=== PATIENT | male | born 1995 | race American Indian/Alaskan Native ===

== ENCOUNTER 2017-10-07 19:31 | Emergency (ER) | payer SELFPAY ==
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
[2017-10-08 02:29] VITALS: BP 116/60
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
== END 2017-10-08 02:28 | disposition home or self-care (01) ==
LOC: ED 19:31
DX: M26.621 Arthralgia of right temporomandibular joint (principal); F17.290 Nicotine dependence, other tobacco product, uncomplicated
CPT/HCPCS: 70110; 99283